=== PATIENT | female | born 2000 | race Caucasian/White ===

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

== ENCOUNTER 2019-03-22 14:54 | Emergency (ER) | payer OTHER ==
[~2019-03-22] VITALS: Ht 165.1 cm; Wt 68.0 kg
[~2019-03-22 14:54] MED LIST: CIPRO500 MG PO; HYDROCODONE-AP1 EAC6 PO; METFORMIN HCL500 MG; YAZ 28 TABLET1 EACH; ZOFRAN ODT4 MG DISSOLVE
[2019-03-22] MEDS ORDERED: IBUPROFEN 600600 M1 PO (16:01)
[2019-03-22 16:17] VITALS: BP 145/91
== END 2019-03-22 16:19 | disposition home or self-care (01) ==
LOC: M.ERS 14:54
DX: S16.1XXA Strain of muscle, fascia and tendon at neck level, initial encounter (principal); R51 Headache; V49.09XA Driver injured in collision with other motor vehicles in nontraffic accident, initial encounter; Y93.89 Activity, other specified; Y92.89 Other specified places as the place of occurrence of the external cause; Y99.8 Other external cause status

== ENCOUNTER 2020-03-24 19:19 | Emergency (ER) | payer OTHER ==
[~2020-03-24] VITALS: Ht 162.6 cm; Wt 92.5 kg
[~2020-03-24 19:19] MED LIST changes: +IBUPROFEN 600600 M1 PO
[2020-03-24 20:32] VITALS: BP 112/60
== END 2020-03-24 20:23 | disposition home or self-care (01) ==
LOC: M.ERS 19:19
DX: R04.0 Epistaxis (principal)